=== PATIENT | male | born 1965 | race Caucasian/White ===

== ENCOUNTER → 2024-07-18 | Outpatient (CLI) | payer BC, SELFPAY ==
--- NOTE | 2024-07-18 16:00 | XR_ITS ---
Exam: MRI knee without contrast, right Date and time of exam: July 18, 2024 1705 hours INDICATIONS: Medial right knee pain joint popping instability swelling 15 years worse this year, ferrous test this week positive for joint laxity Technique: Multiple axial, coronal, and sagittal sections on the knee have been obtained. T2-Weighted sagittal, fat-suppressed images, TR 3,500, TE 62, T2 weighted coronal fat-saturated images, TR 3,500, TE 62 Proton density sagittal sections, TR 1800, TE 31. T-1 weighted coronal images, TR 524, TE 13.0 Findings: Medial meniscus anterior horn intact. Medial meniscus, body large horizontal linear tear communicating inner margin, coronal image 15. Posterior horn medial meniscus large horizontal linear tear communicating inferior articular surface, sagittal image 7. Lateral meniscus anterior horn is intact Lateral meniscus, body is intact Posterior horn lateral meniscus is intact Anterior cruciate ligament appears severely attenuated Posterior cruciate ligament appears intact. Knee effusion is moderate. Quadriceps and patellar tendons appear intact. There is no evidence of tendinosis. Inflammatory change or fracture of Hoffa's fat pad is not seen. Medial patellar facet demonstrates severe thinning. Lateral patellar facet cartilage demonstrates moderate thinning. Trochlear cartilage demonstrates moderate thinning. Marrow signal increased about the medial joint space. Medial collateral ligament appears intact. Meniscocapsular separation body the medial meniscus Illiotibial band and fibular collateral ligament are intact. Biceps femoris tendons appear intact. Medial femoral condylar articular cartilage demonstrates severe thinning. Lateral femoral condylar articular cartilage demonstratesmoderate thinning. Tibial plateau cartilage demonstrates severe medial thinning. Impression: Tears of the body and posterior horn medial meniscus Meniscocapsular separation body of the medial meniscus Severe thinning cartilage medial patellar facet Severe thinning cartilage medial joint space Severe attenuation anterior cruciate ligament
== END | disposition home or self-care (01) ==
LOC: SMRI 07-24 09:33
PROVIDERS: PCP Nurse Practitioner Family; Referring Provider Nurse Practitioner Family; Visit Provider Nurse Practitioner Family
DX: S83.241A Other tear of medial meniscus, current injury, right knee, initial encounter (principal); X58.XXXA Exposure to other specified factors, initial encounter; M25.861 Other specified joint disorders, right knee
CPT/HCPCS: 73721

== ENCOUNTER 2024-10-12 09:39 | Emergency (ER) | payer BC, SELFPAY ==
[2024-10-12 09:40] VITALS: BMI 28.8
[2024-10-12 09:45] VITALS: BP 166/76; PULSE 54; RESP 20; TEMP 36.5; O2SAT 97
--- NOTE | 2024-10-12 09:50 | XR_ITS ---
Examination: CT abdomen and pelvis without contrast. Coronal 3-D reconstructions. Sagittal 2-D reconstructions. Date and time of exam:October 12, 2024 1030 hrs. Comparison February 05, 2022 Indications: Onset right flank pain beginning 6:00 AM this morning CTDI: vol (mGy): 9.11 DLP: (mGycm): 527 Technique: Axial images of the abdomen have been obtained, 3 mm slice thickness Intravenous contrast material has not been administered. Low dose protocols were performed. One or more of the following dose reduction techniques were used; automated exposure control, adjustment of the mA and/or KV according to patient size, use of iterative reconstruction technique. Findings: Mild enlargement cardiac contour Liver is irregular in contour Spleen is not enlarged No pancreatic or adrenal mass Right perinephric stranding 2 mm 4 mm right renal calculi Mild right hydronephrosis secondary to 2 mm distal right ureterovesical junction calculus Aorta normal size No bowel obstruction No pericecal inflammatory change. Colonic diverticulosis, no diverticulitis Mild thickening of urinary bladder wall Advanced disc narrowing L5-S1 Impression: Mild right hydronephrosis secondary to 2 mm distal right ureterovesical junction calculus
[2024-10-12] MEDS: KETOROLAC INJ 60 MG/2 ML VIAL 30 MG IM (09:53)
--- NOTE | 2024-10-12 09:53 | PD.EDRME ---
Rapid Medical Screening Exam RME Arrival date/time: 10/12/24 09:39 59 yo m present to ED for c/o of flank pain for 1 day. hx of kidney stone I have greeted and performed a focused initial assessment of this patient. A comprehensive ED assessment and evaluation of the patient, analysis of all test results, and completion of the medical decision making process will be conducted by additional ED providers. Chief Complaint: Back Pain/Injury Time Seen by Provider: 10/12/24 09:45
[2024-10-12] MEDS: ONDANSETRON ODT 4 MG TABRAP PO (09:57)
--- NOTE | 2024-10-12 10:04 | PC.NURSE ---
PATIENT IN RME ROOM WITH COMPLAINT OF RIGHT FLANK PAIN SINCE 6AM THIS MORNING. PATIENT WITH PAIN 9/10 ON PAIN SCALE AND STATES HE HAS HISTORY OF KIDNEY STONES. PATIENT GIVEN PAIN MEDICATION AND URINE REQUESTED. PATIENT WILL REMAIN IN RME 4 FOR COMFORT.
[2024-10-12 10:21] LABS: Collection Type, Urine Voided
[2024-10-12 10:33] LABS: Basophils # (Auto) 0.1 Thou/mm3 (0.0-0.2); Basophils % (Auto) 0 % (0-2.5); Eosinophils % (Auto) 0 % (0-10); Hemoglobin 14.8 g/dL (13.5-16.0); Immature Granulocytes % (Auto) 0 % (0-0); Immature Granulocytes Auto 0.05 Thou/mm3 (0.00-0.00); Lymphocytes % (Auto) 7 % (10-50); Mean Corpuscular HGB Conc 34.4 g/dl (31.0-37.0); Mean Corpuscular Hemoglobin 30.3 pg (25.0-35.0); Mean Corpuscular Volume 88 fL (80-100); Monocytes # (Auto) 0.6 Thou/mm3 (0.0-0.8); Monocytes % (Auto) 4 % (0-12); Neutrophils # (Auto) 13.2 Thou/mm3 (1.8-7.7); Neutrophils % (Auto) 89 % (37-80); Nucleated Red Blood Cell % 0 /100 WBC (0); Platelet Count 300 Thou/mm3 (140-440); RDW Standard Deviation 43.5 fL (35.1-43.9); Red Blood Count 4.88 Miln/mm3 (4.50-5.90); White Blood Count 14.9 Thou/mm3 (3.8-10.6)
[2024-10-12 10:35] LABS: Bilirubin,Urine Negative (Negative); Blood,Urine Trace (Negative); Clarity,Urine Clear (Clear/Hazy); Color,Urine Yellow (Lt Yel-Yel); Glucose, Urine Negative (Negative); Ketones,Urine 2+ (Negative); Leukocyte Esterase,Urine Negative (Negative); Nitrite,Urine Negative (Negative); Protein,Urine Trace (Neg - Trace); RBC,Urine 9 /hpf (0-3); Specific Gravity,Urine 1.029 (1.001-1.035); Squamous Epithelial Cell,Urine < 1 /hpf (0-5); Urobilinogen,Urine Negative mg/dL (0.0-1.0); WBC,Urine 2 /hpf (0-5)
[2024-10-12 10:45] LABS: Alanine Aminotransferase 22 U/L (10-49); Albumin, Serum 4.6 gm/dL (3.4-4.8); Albumin/Globulin Ratio 1.8 (1.2-2.2); Alkaline Phosphatase 49 U/L (46-116); Anion Gap 10 (7-16); Aspartate Amino Transferase 23 U/L (0-34); BUN/Creatinine Ratio 15 Ratio (12-20); Bilirubin,Total 0.8 mg/dL (0.3-1.2); Blood Urea Nitrogen 17 mg/dL (9-23); Calcium 9.9 mg/dL (8.3-10.6); Calcium (Corrected) 9.9 mg/dL (8.5-10.1); Carbon Dioxide 25.2 mMol/L (20.0-31.0); Chloride 108 mMol/L (98-107); Creatinine (Component) 1.1 mg/dL (0.6-1.3); Estimated Creatinine Clearance 75.3 mL/min (>60); Globulin 2.5 gm/dL (2.3-3.5); Glucose 134 mg/dL (74-106); Lipase 117 U/L (12-53); Osmolality,Calculated 288 (275-295); Potassium 4.4 mMol/L (3.4-5.1); Sodium 143 mMol/L (136-145); Total Protein 7.1 gm/dL (5.7-8.2); eGFR > 60 See Note
--- NOTE | 2024-10-12 11:16 | EDNOTE_ITS ---
ED Abdominal Pain RME/HPI General Chief Complaint: Back Pain/Injury Stated complaint: R) FLANK RADIATING TO FRONT, VOMITING AFTER WATER Time seen by provider: 10/12/24 09:45 Arrival date/time: 10/12/24 09:39 59 year old male present to emergency room with c/o of right flank pain this morning. pt report similar sx in the past for kidney stone. LOCATION: flank SEVERITY: Symptoms are described as being severe with limitations on activities of daily living CONTEXT: The patient is unable to identify any inciting events. DURATION/TIMING: The symptoms started approximately 1 day ASSOCIATED SYMPTOMS: flank, nausea and vomiting MODIFYING FACTORS: The patient is unable to identify any alleviating or aggrav ating symptoms. PERTINENT ROS: no fevers, no cough, no pleuritic pain, no ripping or tearing sensations, denies any lower extremity edema and no unilateral swelling, no chest pain/shortness of breath no diarrhea, no dizziness/headache no rash no loc/syncope episode REVIEW OF SYSTEMS: See History of Present Illness - with the exception of those mentioned in the history of present illness, all other systems reviewed and reported as negative GENERAL: In general the patient is awake, interactive, in an emergency department gurney. HEAD/EYES/EARS/NOSE/THROAT: normo-cephalic, atraumatic, mucus membranes are moist, anicteric, palpebral conjunctiva is pink, trachea is midline. CARDIOVASCULAR: regular rate and regular rhythm, no murmurs, heart sounds are not distant, strong pulses in all four extremities that are equal and symmetric bilateral upper and lower extremities, normal capillary refill. CHEST/PULMONARY: normal chest rise and fall, good air movement, clear to auscultation bilaterally, normal inspiratory to expiratory ratios without evidence of respiratory distress. NECK: No midline/Paraspinal tenderness, no step off ROM/Strenght intact No Kernig and bruzinski sign. No trauma ABDOMEN: soft, not tender, no masses appreciated BACK: normal range of motion without pain. NEUROLOGICAL: cranio-facial features are symmetric, moves all four extremities equally without obvious limitations or weakness. EXTREMITY: no tenderness to palpation over the long bones or large joints of the bilateral upper and lower extremities, no joint swelling, no joint erythema, no signs of trauma, no unilateral leg swelling and no peripheral edema. SKIN: warm, dry, well-perfused, no jaundice, no rash, no telangiectasias or petechia. PSYCH: calm, cooperative, no evidence of psychosis or agitation RME / HPI RME / HPI narrative: 10/12/24 09:39 59 yo m present to ED for c/o of flank pain for 1 day. hx of kidney stone I have greeted and performed a focused initial assessment of this patient. A comprehensive ED assessment and evaluation of the patient, analysis of all test results, and completion of the medical decision making process will be conducted by additional ED providers. Related Data Previous Rx's ?Medication ?Instructions ?Recorded ibuprofen 800 mg tablet (IBU) 800 mg PO TID PRN fever or pain 10/12/24 #30 tabs ondansetron 4 mg disintegrating 4 mg PO Q8H PRN nausea and 10/12/24 tablet vomiting #20 tabs tamsulosin 0.4 mg capsule (Flomax) 0.4 mg PO QDAY #14 caps 10/12/24 Allergies Allergy/AdvReac Type Severity Reaction Status Date / Time No Known Allergies Allergy Verified 02/05/22 12:50 Course Course Course Narrative: Presentation most consistent with Renal Colic from a Non-infected Kidney Stone. Given History and Exam I have lower suspicion for atypical appendicitis, genital torsion, acute cholecystitis, AAA, Aortic Dissection, Serious Bacterial Illness or other emergent intraabdominal pathology. Workup: CBC, BMP, CT Abd/Pelvis noncontrast, UA, reassess Findings: + UVJ stone 2mm Reassesment: Patient tolerating PO and pain controlled RX: flomax, IBU and zofran? Disposition:? Discharge. Strict return precautions for infected stone or PO intolerance discussed. Quality Measures none Orders Category Date Time Status CT abdomen pelvis wo con Stat Exams 10/12/24 09:50 Completed CBC Stat Lab 10/12/24 10:07 Completed CMP [Comprehensive Metabolic Panel] Stat Lab 10/12/24 10:07 Completed Lipase Stat Lab 10/12/24 10:07 Completed UA [Urinalysis] Stat Lab 10/12/24 10:00 Completed Ketorolac Inj [Toradol Inj] Med 10/12/24 09:50 Discontinued 30 mg IM X1 ONE Ondansetron Odt [Zofran Odt] Med 10/12/24 09:50 Discontinued 4 mg PO X1 ONE Vital Signs Vital signs: Vital Signs Temperature 97.7 F 10/12/24 09:45 Pulse Rate 54 L 10/12/24 09:45 Respiratory Rate 20 10/12/24 09:45 Blood Pressure 166/76 H 10/12/24 09:45 Pulse Oximetry (%) 97 10/12/24 09:45 Oxygen Delivery Method Room Air 10/12/24 09:45 Abdominal Pain MDM Patient data External records reviewed:: [facility] previous records Clinical information provided by:: patient Social determinants that could affect healthcare access:: none Patient has the following chronic illnesses:: kidney stone How is presenting disease/condition affected by chronic disease/condition?: exacerbated by Evaluation data The following diagnostics were reviewed and interpreted by me:: lab results and radiology exam(s) Lab and/or radiology exams considered but not ordered:: none Interpretation Summary: CT: Impression: Mild right hydronephrosis secondary to 2 mm distal right ureterovesical junction calculus urine + rbc no infection cbc: 15k most likely due to vomiting cmp no sign of kidney injury or dehydration Medications / Prescriptions Medications or Prescriptions considered but not ordered:: none Medication administrations:: Medication Administration History Discontinued Medications Ketorolac Tromethamine (Ketorolac Inj 60 Mg/2 Ml Vial) 30 mg IM X1 ONE Stop: 10/12/24 09:51 Last Admin: 10/12/24 09:53 Dose: 30 mg Documented By: GENA Ondansetron HCl (Ondansetron Odt 4 Mg Tabrap) 4 mg PO X1 ONE; Protocol Stop: 10/12/24 09:51 Last Admin: 10/12/24 09:57 Dose: 4 mg Documented By: GENA as stated above Consultations Consultation(s) initiated? (list below): No Diagnosis Differential diagnosis abdominal pain: abdominal pain, calculus of kidney, constipation, gastroenteritis and small bowel obstruction Most likely diagnosis given after review of the tests above:: uvj stone Admission Indicated Admission indicated?: not indicated Admission Request Was there a request for admission?: No Disposition Plan Disposition Plan: Discharge Discharge Attestation Discharge Attestation: The patient and all family members were given an opportunity to ask questions and understood the discharge instructions. Discharge instructions specifically effects, indications for sooner follow up or return to the emergency department, and the expected course of current diagnosis. Patient condition: Stable Discharge Plan Plan Patient Disposition: HOME (Self Care) Health Concerns: Follow with PMD as directed Take tylenol or motrin as need Return to ED if sx worsen Prescriptions/Referrals Prescriptions/Med Rec: New tamsulosin [Flomax] 0.4 mg capsule 0.4 mg PO QDAY Qty: 14 0RF ibuprofen [IBU] 800 mg tablet 800 mg PO TID PRN (Reason: fever or pain) Qty: 30 0RF ondansetron 4 mg tablet,disintegrating 4 mg PO Q8H PRN (Reason: nausea and vomiting) Qty: 20 0RF Referrals: No Primary/Family,Physician [Primary Care Provider] - In 1 week Problem List Clinical Impression: Calculus of ureterovesical junction (UVJ) Patient/Caregiver Discharge Instructions Education Materials: Hematuria: Possible Causes Print Language: Faroese Stand Alone Forms: [facility] Award Info., Patient Portal Info Letter
[2024-10-12 11:48] VITALS: BP 135/72; PULSE 56; RESP 20; O2SAT 97
== END 2024-10-12 11:50 | disposition home or self-care (01) ==
PROVIDERS: Physician Assistant; Emergency Provider Emergency Medicine
DX: N13.2 Hydronephrosis with renal and ureteral calculous obstruction (principal)
CPT/HCPCS: 36415; 74176; 80053; 81001; 83690; 85025; 96372; 99284; J1885; Q0162

== ENCOUNTER → 2025-02-02 | Outpatient (CLI) | payer BC, SELFPAY ==
[2025-02-02 09:41] LABS: Basophils # (Auto) 0.1 Thou/mm3 (0.0-0.2); Basophils % (Auto) 1 % (0-2.5); Eosinophils # (Auto) 0.1 Thou/mm3 (0.0-0.5); Eosinophils % (Auto) 2 % (0-10); Hematocrit 44.3 % (41.0-53.0); Hemoglobin 14.7 g/dL (13.5-16.0); Immature Granulocytes % (Auto) 0 % (0-0); Immature Granulocytes Auto 0.01 Thou/mm3 (0.00-0.00); Lymphocytes # (Auto) 1.7 Thou/mm3 (1.0-4.8); Lymphocytes % (Auto) 31 % (10-50); Mean Corpuscular HGB Conc 33.2 g/dl (31.0-37.0); Mean Corpuscular Hemoglobin 29.8 pg (25.0-35.0); Mean Corpuscular Volume 90 fL (80-100); Monocytes # (Auto) 0.5 Thou/mm3 (0.0-0.8); Monocytes % (Auto) 9 % (0-12); Neutrophils % (Auto) 56 % (37-80); Nucleated Red Blood Cell % 0 /100 WBC (0); Platelet Count 311 Thou/mm3 (140-440); RDW Standard Deviation 45.1 fL (35.1-43.9); Red Blood Count 4.94 Miln/mm3 (4.50-5.90); White Blood Count 5.4 Thou/mm3 (3.8-10.6)
[2025-02-02 09:53] LABS: Cholesterol 174 mg/dL (132-200); Free T4 (Free Thyroxine) 0.96 ng/dL (0.89-1.76); HDL Cholesterol 58 mg/dL (40-60); LDL Cholesterol,Calculated 104 mg/dL (0-130); Thyroid Stimulating Hormone 0.97 uIU/mL (0.55-4.78); Triglycerides 60 mg/dL (30-150)
== END | disposition home or self-care (01) ==
PROVIDERS: PCP Nurse Practitioner Family; Referring Provider Nurse Practitioner Family; Visit Provider Nurse Practitioner Family
DX: E03.9 Hypothyroidism, unspecified (principal); Z13.220 Encounter for screening for lipoid disorders
CPT/HCPCS: 36415; 80061; 84439; 84443; 85025

== ENCOUNTER → 2025-03-19 | Outpatient (BNVA) | payer BC, SELFPAY | END | disposition home or self-care (01) | PROVIDERS: PCP Family Medicine; Referring Provider Family Medicine; Visit Provider Urology | DX: N13.2 Hydronephrosis with renal and ureteral calculous obstruction (principal); Z80.42 Family history of malignant neoplasm of prostate; E66.9 Obesity, unspecified; Z68.30 Body mass index [BMI] 30.0-30.9, adult | CPT/HCPCS: 81003; 99213; G0463 ==

== ENCOUNTER → 2025-05-05 | Outpatient (CLI) | payer BC, SELFPAY ==
--- NOTE | 2025-05-05 13:00 | XR_ITS ---
Examination: Retroperitoneal ultrasound, complete Technique: Multiple high resolution grayscale images of the retroperitoneum obtained, including kidneys and bladder. Exam date and time:May 05, 2025 1319 hours INDICATIONS: History flank pain months, right hydronephrosis 2 mm distal right ureterovesical junction calculus on CT study October 12, 2024 FINDINGS: Right kidney 12.5 cm renal cortex 1.5 cm Left kidney 12.5 cm cortex 2.1 cm Midpole 23 mm cyst Mild renal scar formation No bladder mass or bladder calculi, bladder prevoid volume 136 cc Prostate volume 26 cc no prostate nodules IMPRESSION: Right renal cortical thinning Mild renal scar formation No hydronephrosis or renal calculi
== END | disposition home or self-care (01) ==
LOC: CDIM 12:56
PROVIDERS: Referring Provider Urology; Visit Provider Urology
DX: N28.89 Other specified disorders of kidney and ureter (principal)
CPT/HCPCS: 76770